=== PATIENT | male | born 1970 | race Caucasian/White ===

== ENCOUNTER 2019-05-05 16:49 | Inpatient (IN) | payer OTHER ==
--- NOTE | 2019-05-05 19:35 | BHS.RME ---
Substance Use & Tx History - Last Treatment Where was last treatment: [facility] ([facility]) (in [facility] w/ Suboxone in [place] , goes monthly claims he did not have money to pay . heroin : 1 bundle /day via inhalation , latest use this morning .) COWS - Scale Resting Pulse: 0= [place] 80 or Below Sweatin= Chills/Flushing Restless Observation: 1= Difficult to Sit Still Pupil Size: 0= Normal to Room Light Bone or Joint Aches: 2= Severe Diffuse Aches Runny Nose/ Eye Tearin= Runny Nose/Eyes GI Upset > 30mins: 2= Nausea/Diarrhea Tremor Observation: 0= None Yawning Observation: 0= None Anxiety or Irritability: 1=Feels Anxious/Irritable Goose Flesh Skin: 0=Smooth Skin (latest Bup yesterday evening . denies MMTP cocaine : 2 x/week etoh - denies other illicits - denies tobacco : 1/ 4 ppd .) COWS Score: 9
--- NOTE | 2019-05-05 20:33 | HP ---
COWS - Scale Resting Pulse: 0= [place] 80 or Below Sweatin= Chills/Flushing Restless Observation: 1= Difficult to Sit Still Pupil Size: 0= Normal to Room Light Bone or Joint Aches: 2= Severe Diffuse Aches Runny Nose/ Eye Tearin= Runny Nose/Eyes GI Upset > 30mins: 2= Nausea/Diarrhea Tremor Observation: 0= None Yawning Observation: 0= None Anxiety or Irritability: 1=Feels Anxious/Irritable Goose Flesh Skin: 0=Smooth Skin (latest Bup yesterday evening . denies MMTP cocaine : 2 x/week etoh - denies other illicits - denies tobacco : 03/21 ppd .) COWS Score: 9 CIWA Score Nausea/Vomitin-No Nausea/No Vomiting Muscle Tremors: None Anxiety: 1-Mildly Anxious Agitation: 0-Normal Activity Paroxysmal Sweats: 1-Minimal Palms Moist Orientation: 2-Disoriented Date<2 days Tacttile Disturbances: 0-None Auditory Disturbances: 0-None Visual Disturbances: 0-None Headache: 0-None Present CIWA-Ar Total Score: 4 - Admission Criteria [facility] Guidelines: Admission for Medically Managed Detox: Requires at least one of the followin. CIWA greater than 12 2. Seizures within the past 24 hours 3. Delirium tremens within the past 24 hours 4. Hallucinations within the past 24 hours 5. Acute intervention needed for co occurring medical disorder 6. Acute intervention needed for co occurring psychiatric disorder 7. Severe withdrawal that cannot be handled at a lower level of care (continued vomiting, continued diarrhea, abnormal vital signs) requiring intravenous medication and/or fluids 8. Admission ROS [facility] - HPI Allergies/Adverse Reactions: Allergies Allergy/AdvReac Type Severity Reaction Status Date / Time No Known Allergies Allergy Verified 05/05/19 20:24 History of Present Illness: 49 y.o. male her for heroin detox , states does not want to continue in Buprenorphine program in [place] . PMHX : anxiety and HTN , reports non- compliance w/ meds. PSHX : left eye injury 37 yrs ago Exam Limitations: Clinical Condition - Review of Systems Constitutional: No Symptoms Reported EENT: reports: See HPI, Nose Congestion Respiratory: reports: No Symptoms reported Cardiac: reports: No Symptoms Reported GI: reports: Nausea, Abdominal cramping : reports: No Symptoms Reported Musculoskeletal: reports: No Symptoms Reported Integumentary: reports: No Symptoms Reported Neuro: reports: No Symptoms reported Endocrine: reports: No Symptoms Reported Psychiatric: reports: Orientated x3, Agitated, Anxious Patient History - Smoking Cessation Smoking history: Current every day smoker Have you smoked in the past 12 months: Yes Hx Chewing Tobacco Use: No Initiated information on smoking cessation: Yes 'Breaking Loose' booklet given: 05/05/19 - Substances abused Heroin Substance route: Inhalation Frequency: Daily Amount used: 1 bundle Age of first use: 21 Date of last use: 05/05/19 Alcohol Substance route: Oral Frequency: Daily Amount used: 4 beers/ small bottle. Age of first use: 16 Date of last use: 05/04/19 Admission Physical Exam BHS - Physical General Appearance: Yes: Disheveled, Mild Distress, Sweating, Anxious HEENTM: Yes: EOMI, Normocephalic, Normal Voice, Nasal Congestion, Rhinorrhea, Other (upper dentures) Respiratory: Yes: Chest Non-Tender, Lungs Clear, Normal Breath Sounds, No Respiratory Distress, No Accessory Muscle Use Neck: Yes: No masses,lesions,Nodules, Trachea in good position Cardiology: Yes: Regular Rhythm, Regular Rate, S1, S2 Abdominal: Yes: Non Tender, Soft Musculoskeletal: Yes: Gait Steady Extremities: Yes: Normal Range of Motion, Non-Tender Neurological: Yes: Alert, Motor Strength 5/5, Normal Mood/Affect Integumentary: Yes: Warm - Diagnostic (1) Opioid dependence Current Visit: Yes Status: Chronic Qualifiers: Substance use status: uncomplicated Qualified Code(s): F11.20 - Opioid dependence, uncomplicated (2) Cocaine use disorder Current Visit: Yes Status: Chronic (3) Alcohol use disorder Current Visit: Yes Status: Chronic (4) Nicotine dependence Current Visit: Yes Status: Chronic Qualifiers: Nicotine product type: cigarettes Inpatient Rehab Admission - Rehab Decision to Admit Inpatient rehab admission?: No
[2019-05-05 20:34] VITALS: BMI 29.2
[2019-05-05] MEDS ORDERED: MAGNESIUM CITRATE 300 ML BOTTLE PO PRN (20:38)
[2019-05-05] MEDS ORDERED: BISMUTH SUBSALICYLATE 524 MG/30 ML UD PO PRN (20:38)
[2019-05-05] MEDS ORDERED: IBUPROFEN 400 MG TABLET (FP) PO PRN (20:38)
[2019-05-05] MEDS ORDERED: NICOTINE POLACRILEX 2 MG GUM BUC PRN (20:38)
[2019-05-05] MEDS ORDERED: MAGNESIUM HYDROX 2400MG/30ML ORAL SUSPENSION 30 ML CUP PO PRN (20:38)
[2019-05-05] MEDS ORDERED: MENTHOL/PHENOL 1 EACH UD MM PRN (20:38)
[2019-05-05] MEDS ORDERED: ACETAMINOPHEN 325 MG TABLET (FP) PO PRN ×2 (20:38)
[2019-05-05] MEDS ORDERED: cloNIDine HCL 0.1 MG TABLET PO PRN (20:39)
[2019-05-05] MEDS: THIAMINE HCL 100 MG TABLET (FP) PO SCH (21:48)
[2019-05-05] MEDS ORDERED: METHADONE HCL 10 MG TABLET (FOR DETOX USE ONLY) PO ONE ×2 (22:00→23:39)
[2019-05-05] MEDS ORDERED: MELATONIN 5 MG TABLETS PO PRN (22:00)
[2019-05-06] MEDS ORDERED: METHADONE HCL 10 MG TABLET (FOR DETOX USE ONLY) ONE (09:26)
[2019-05-06] MEDS ORDERED: METHADONE HCL 5 MG TABLET (FOR DETOX USE ONLY) ONE (09:26)
[2019-05-06] MEDS ORDERED: METHADONE (DETOX) 20 MG, METHADONE (DETOX) 5 MG PO ONE (10:00)
[2019-05-06] MEDS: PRENATAL VITAMINS W/ FOLIC ACID TABLET (FP) PO SCH (10:11)
[2019-05-06] MEDS: METHOCARBAMOL 500 MG TABLET PO PRN ×2 (10:13→22:08)
--- NOTE | 2019-05-06 10:43 | PN ---
[facility] CIWA - CIWA Score Nausea/Vomitin-Mild Nausea/No Vomiting Muscle Tremors: 2 Anxiety: 2 Agitation: 2 Paroxysmal Sweats: No Perspiration Orientation: 0-Oriented Tacttile Disturbances: 1-Very Mild Itch/Numbness Auditory Disturbances: 0-None Visual Disturbances: 0-None Headache: 1-Very Mild CIWA-Ar Total Score: 9 BHS COWS - Scale Resting Pulse: 1= [place] 81-100 Sweatin= No chills or Flushing Restless Observation: 1= Difficult to Sit Still Pupil Size: 1= Pupils >than Normal Bone or Joint Aches: 1= Mild Discomfort Runny Nose/ Eye Tearin= Nasal Congestion GI Upset > 30mins: 1= Stomach Cramp Tremor Observation of Outstretched Hands: 1= Tremor [place], Not Seen Yawning Observation: 1= 1-2x During Session Anxiety or Irritability: 2=Irritable/Anxious Goose Flesh Skin: 0=Smooth Skin COWS Score: 10 S Progress Note (SOAP) Subjective: alert,irritable,anxious,interrupted sleep,pain in the body,back,tremor Objective: 05/06/19 10:45 Vital Signs Temperature 97.5 F L 05/06/19 09:20 Pulse Rate 90 05/06/19 09:20 Respiratory Rate 19 05/06/19 09:20 Blood Pressure 134/69 05/06/19 09:20 O2 Sat by Pulse Oximetry (%) 05/06/19 10:46 labs pending Assessment: 05/06/19 10:46 withdrawal symptom Plan: continue detox methadone regimen,will add valuim 10mgs q 4 hrs prn for 72 hrs
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
--- NOTE | 2019-05-06 11:33 | EKG ---
Test Reason : Blood Pressure : / mmHG Vent. Rate : 077 BPM Atrial Rate : 077 BPM P-R Int : 160 ms QRS Dur : 098 ms QT Int : 366 ms P-R-T Axes : 070 039 040 degrees QTc Int : 414 ms NORMAL SINUS RHYTHM NORMAL ECG NO PREVIOUS ECGS AVAILABLE Confirmed by MD ADONAY, JIMMY ([id number]) on 05/06/2019 11:32:44 AM Referred By: Catracho Edgar Confirmed By:JIMMY URIAS MD
[2019-05-06 11:59] LABS: HEMOGLOBIN 14.1 GM/dL (11.7-16.9); MCH 30.7 pg (25.7-33.7); MCHC 34.3 g/dl (32.0-35.9); MEAN CELL VOLUME 89.6 fl (80-96); MEAN PLT VOLUME 10.3 fl (7.5-11.1); PLATELET COUNT 181 K/MM3 (134-434); RBC 4.57 M/mm3 (4.00-5.60); RDW 12.9 % (11.9-15.9); WHITE BLOOD COUNT 6.4 K/mm3 (4.0-10.0)
[2019-05-06 12:04] LABS: ALBUMIN 3.2 g/dl (3.4-5.0); BILIRUBIN,TOTAL 0.2 mg/dL (0.2-1); BLOOD UREA NITROGEN 15.4 mg/dL (7-18); CALCIUM 8.7 mg/dL (8.5-10.1); CREATININE 0.9 mg/dL (0.55-1.3); TOT PROT 6.6 g/dl (6.4-8.2)
[2019-05-06] MEDS: diazePAM 5 MG TABLET PO PRN (22:08)
[2019-05-06] MEDS: MELATONIN 5 MG TABLETS PO PRN (22:08)
[2019-05-06] MEDS: THIAMINE HCL 100 MG TABLET (FP) PO SCH (22:08)
[2019-05-07] MEDS: MAG HYDROX/AL HYDROX/SIMETH 30 ML UNIT-DOSE CUP PO PRN ×2 (03:31→10:25)
[2019-05-07] MEDS: diazePAM 5 MG TABLET PO PRN (03:39)
--- NOTE | 2019-05-07 09:51 | PN ---
S CIWA - CIWA Score Nausea/Vomitin-No Nausea/No Vomiting Muscle Tremors: 2 Anxiety: 2 Agitation: 2 Paroxysmal Sweats: No Perspiration Orientation: 0-Oriented Tacttile Disturbances: 1-Very Mild Itch/Numbness Auditory Disturbances: 0-None Visual Disturbances: 0-None Headache: 1-Very Mild CIWA-Ar Total Score: 8 BHS Progress Note (SOAP) Subjective: alert,irritable,anxious,interrupted sleep,pain in the body,pain in the right ear Objective: 05/07/19 09:47 Vital Signs Temperature 97.7 F 05/07/19 05:04 Pulse Rate 58 L 05/07/19 05:04 Respiratory Rate 18 05/07/19 05:04 Blood Pressure 104/65 05/07/19 05:04 O2 Sat by Pulse Oximetry (%) 05/07/19 09:48 Laboratory Last Values WBC 6.4 K/mm3 (4.0-10.0) 05/06/19 07:35 RBC 4.57 M/mm3 (4.00-5.60) 05/06/19 07:35 Hgb 14.1 GM/dL (11.7-16.9) 05/06/19 07:35 Hct 41.0 % (35.4-49) 05/06/19 07:35 MCV 89.6 fl (80-96) 05/06/19 07:35 MCH 30.7 pg (25.7-33.7) 05/06/19 07:35 MCHC 34.3 g/dl (32.0-35.9) 05/06/19 07:35 RDW 12.9 % (11.9-15.9) 05/06/19 07:35 Plt Count 181 K/MM3 (134-434) 05/06/19 07:35 MPV 10.3 fl (7.5-11.1) 05/06/19 07:35 Sodium 141 mmol/L (136-145) 05/06/19 07:35 Potassium 4.0 mmol/L (3.5-5.1) 05/06/19 07:35 Chloride 108 mmol/L (98-107) H 05/06/19 07:35 Carbon Dioxide 26 mmol/L (21-32) 05/06/19 07:35 Anion Gap 8 MMOL/L (8-16) 05/06/19 07:35 BUN 15.4 mg/dL (7-18) 05/06/19 07:35 Creatinine 0.9 mg/dL (0.55-1.3) 05/06/19 07:35 Est GFR (CKD-EPI)AfAm 116.65 05/06/19 07:35 Est GFR (CKD-EPI)NonAf 100.64 05/06/19 07:35 Random Glucose 103 mg/dL (74-106) 05/06/19 07:35 Calcium 8.7 mg/dL (8.5-10.1) 05/06/19 07:35 Total Bilirubin 0.2 mg/dL (0.2-1) 05/06/19 07:35 AST 16 U/L (15-37) 05/06/19 07:35 ALT 32 U/L (13-61) 05/06/19 07:35 Alkaline Phosphatase 97 U/L (45-117) 05/06/19 07:35 Total Protein 6.6 g/dl (6.4-8.2) 05/06/19 07:35 Albumin 3.2 g/dl (3.4-5.0) L 05/06/19 07:35 RPR Titer Nonreactive (NONREACTIVE) 05/06/19 07:35 Assessment: 05/07/19 09:48 withdrawal symptom 05/07/19 09:49 redness of external ear canal otitis externa Plan: continue detox methadone regimen,cortisporin otic suspension 4 gtts right ear q 6 hrs
[2019-05-07] MEDS ORDERED: METHADONE HCL 10 MG TABLET (FOR DETOX USE ONLY) PO ONE (10:00)
[2019-05-07] MEDS: PRENATAL VITAMINS W/ FOLIC ACID TABLET (FP) PO SCH (10:23)
[2019-05-07] MEDS: NEOMYCIN/POLYMYXN/HC OTIC SUSPENSION 10 ML BOTTLE AD SCH ×2 (15:45→17:30)
[2019-05-07] MEDS: THIAMINE HCL 100 MG TABLET (FP) PO SCH (22:08)
[2019-05-07] MEDS: MELATONIN 5 MG TABLETS PO PRN (22:09)
[2019-05-08] MEDS: NEOMYCIN/POLYMYXN/HC OTIC SUSPENSION 10 ML BOTTLE AD SCH ×4 (00:10→18:16)
--- NOTE | 2019-05-08 08:49 | PN ---
BHS COWS - Scale Resting Pulse: 0= [place] 80 or Below Sweatin= No chills or Flushing Restless Observation: 1= Difficult to Sit Still Pupil Size: 1= Pupils >than Normal Bone or Joint Aches: 1= Mild Discomfort Runny Nose/ Eye Tearin= Nasal Congestion GI Upset > 30mins: 1= Stomach Cramp Tremor Observation of Outstretched Hands: 2= Slight Tremor Visible Yawning Observation: 1= 1-2x During Session Anxiety or Irritability: 2=Irritable/Anxious Goose Flesh Skin: 0=Smooth Skin COWS Score: 10 S Progress Note (SOAP) Subjective: alert,irritable,anxious,interrupted sleep,pain in the body Objective: 05/08/19 08:48 alert,irritable,anxious,interrupted sleep,tremor,pain in the body 05/08/19 08:48 Vital Signs Temperature 97.5 F L 05/08/19 06:17 Pulse Rate 72 05/08/19 06:17 Respiratory Rate 16 05/08/19 06:17 Blood Pressure 151/83 05/08/19 06:17 O2 Sat by Pulse Oximetry (%) Assessment: 05/08/19 08:48 withdrawal symptom Plan: continue detox methadone regimen,pain in the right ear is less
[2019-05-08] MEDS ORDERED: METHADONE HCL 10 MG TABLET (FOR DETOX USE ONLY) ONE (09:29)
[2019-05-08] MEDS ORDERED: METHADONE HCL 5 MG TABLET (FOR DETOX USE ONLY) ONE (09:29)
[2019-05-08] MEDS ORDERED: METHADONE (DETOX) 10 MG, METHADONE (DETOX) 5 MG PO ONE (10:00)
[2019-05-08] MEDS: PRENATAL VITAMINS W/ FOLIC ACID TABLET (FP) PO SCH (10:15)
[2019-05-08] MEDS: MAG HYDROX/AL HYDROX/SIMETH 30 ML UNIT-DOSE CUP PO PRN (10:16)
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
[2019-05-08] MEDS: THIAMINE HCL 100 MG TABLET (FP) PO SCH (22:11)
[2019-05-08] MEDS: MELATONIN 5 MG TABLETS PO PRN (22:12)
[2019-05-09] MEDS: NEOMYCIN/POLYMYXN/HC OTIC SUSPENSION 10 ML BOTTLE AD SCH ×4 (00:06→21:36)
[2019-05-09] MEDS: diazePAM 5 MG TABLET PO PRN (00:51)
[2019-05-09] MEDS ORDERED: METHADONE HCL 10 MG TABLET (FOR DETOX USE ONLY) PO ONE (10:00)
[2019-05-09] MEDS: PRENATAL VITAMINS W/ FOLIC ACID TABLET (FP) PO SCH (10:11)
--- NOTE | 2019-05-09 13:44 | PN ---
[facility] CIWA - CIWA Score Nausea/Vomitin-No Nausea/No Vomiting Muscle Tremors: None Anxiety: 4-Mod. Anxious/Guarded Agitation: 1-Slight > Activity Paroxysmal Sweats: No Perspiration Orientation: 0-Oriented Tacttile Disturbances: 0-None Auditory Disturbances: 2-Mild Harshness/Frighten Visual Disturbances: 0-None Headache: 0-None Present CIWA-Ar Total Score: 7 S COWS - Scale Resting Pulse: 1= [place] 81-100 Sweatin= No chills or Flushing Restless Observation: 0= Sits Still Pupil Size: 0= Normal to Room Light Bone or Joint Aches: 0= None Runny Nose/ Eye Tearin= None GI Upset > 30mins: 0= None Tremor Observation of Outstretched Hands: 0= None Yawning Observation: 1= 1-2x During Session Anxiety or Irritability: 2=Irritable/Anxious Goose Flesh Skin: 0=Smooth Skin COWS Score: 4 S Progress Note (SOAP) Subjective: Anxious. Objective: PATIENT A & O X 3, OBSERVED AMBULATING ON DETOX UNIT UNASSISTED. IN NO ACUTE DISTRESS. 05/09/19 13:41 Vital Signs Temperature 96.8 F L 05/09/19 08:30 Pulse Rate 81 05/09/19 08:30 Respiratory Rate 18 05/09/19 08:30 Blood Pressure 113/58 L 05/09/19 08:30 O2 Sat by Pulse Oximetry (%) Laboratory Tests 05/06/19 05/06/19 05/06/19 07:35 07:35 07:35 WBC 6.4 RBC 4.57 Hgb 14.1 Hct 41.0 MCV 89.6 MCH 30.7 MCHC 34.3 RDW 12.9 Plt Count 181 MPV 10.3 Sodium 141 Potassium 4.0 Chloride 108 H Carbon Dioxide 26 Anion Gap 8 BUN 15.4 Creatinine 0.9 Est GFR (CKD-EPI)AfAm 116.65 Est GFR (CKD-EPI)NonAf 100.64 Random Glucose 103 Calcium 8.7 Total Bilirubin 0.2 AST 16 ALT 32 Alkaline Phosphatase 97 Total Protein 6.6 Albumin 3.2 L RPR Titer Nonreactive LABS NOTED. Assessment: 05/09/19 13:41 WITHDRAWAL SYMPTOMS. Plan: CONTINUE DETOX. PATIENT SCHEDULED FOR D/C FROM DETOX UNIT TOMORROW.
[2019-05-09] MEDS: hydrOXYzine PAMOATE 25 MG CAPSULE (FP) PO PRN (18:30)
[2019-05-09] MEDS: THIAMINE HCL 100 MG TABLET (FP) PO SCH (21:37)
[2019-05-09] MEDS: MELATONIN 5 MG TABLETS PO PRN (21:37)
[2019-05-10] MEDS: NEOMYCIN/POLYMYXN/HC OTIC SUSPENSION 10 ML BOTTLE AD SCH ×4 (02:15→20:21)
[2019-05-10] MEDS: hydrOXYzine PAMOATE 25 MG CAPSULE (FP) PO PRN ×2 (02:48→23:32)
[2019-05-10] MEDS ORDERED: METHADONE HCL 5 MG TABLET (FOR DETOX USE ONLY) PO ONE (06:00)
[2019-05-10] MEDS: PRENATAL VITAMINS W/ FOLIC ACID TABLET (FP) PO SCH (10:21)
[2019-05-10] MEDS ORDERED: cloNIDine HCL 0.1 MG TABLET PO PRN (11:42)
--- NOTE | 2019-05-10 12:02 | PN ---
[facility] CIWA - CIWA Score Nausea/Vomitin-No Nausea/No Vomiting Muscle Tremors: None Anxiety: 2 Agitation: 1-Slight > Activity Paroxysmal Sweats: 2 Orientation: 0-Oriented Tacttile Disturbances: 0-None Auditory Disturbances: 0-None Visual Disturbances: 0-None Headache: 0-None Present CIWA-Ar Total Score: 5 S COWS - Scale Resting Pulse: 1= [place] 81-100 Sweatin= No chills or Flushing Restless Observation: 0= Sits Still Pupil Size: 0= Normal to Room Light Bone or Joint Aches: 1= Mild Discomfort Runny Nose/ Eye Tearin= None GI Upset > 30mins: 1= Stomach Cramp Tremor Observation of Outstretched Hands: 0= None Yawning Observation: 0= None Anxiety or Irritability: 1=Feels Anxious/Irritable Goose Flesh Skin: 0=Smooth Skin COWS Score: 4 S Progress Note (SOAP) Subjective: Sweating, chills, tremor, no sleep, nausea, a little diarrhea. Patient scheduled for discharge today, he requested discharge tomorrow instead due to increased withdrawal sxs. Objective: 05/10/19 11:56 Last Vital Signs Temp Pulse Resp BP Pulse Ox 97.7 F 84 20 141/78 05/10/19 09:35 05/10/19 09:35 05/10/19 09:35 05/10/19 09:35 Elevated b/p: denies htn, most likely due to withdrawal Laboratory Tests 05/06/19 05/06/19 05/06/19 07:35 07:35 07:35 WBC 6.4 RBC 4.57 Hgb 14.1 Hct 41.0 MCV 89.6 MCH 30.7 MCHC 34.3 RDW 12.9 Plt Count 181 MPV 10.3 Sodium 141 Potassium 4.0 Chloride 108 H Carbon Dioxide 26 Anion Gap 8 BUN 15.4 Creatinine 0.9 Est GFR (CKD-EPI)AfAm 116.65 Est GFR (CKD-EPI)NonAf 100.64 Random Glucose 103 Calcium 8.7 Total Bilirubin 0.2 AST 16 ALT 32 Alkaline Phosphatase 97 Total Protein 6.6 Albumin 3.2 L RPR Titer Nonreactive Labs reviewed Assessment: 05/10/19 11:57 Withdrawal sxs Noted with elevated b/p Plan: Continue detox Encouraged PO water intake Discharge canceled, changed to tomorrow due to increased withdrawal sxs After reviewing detox protocol, communications writer believed patient didn't receive adequate detox medications, therefore, detox protocol extended as follows: Started on clonidine prn, methadone 5mg PO x 1 ordered for tomorrow at 0600 Valium 5mg PO bid x 2 doses today, Valium 5mg PO x 1 dose tomorrow at 0600 Elevated b/p: denies htn, monitor b/p, clonidine 0.1mg PO q8hr prn if b/p >=140/ 90, hold for b/p < 110/60
[2019-05-10] MEDS: diazePAM 5 MG TABLET PO SCH ×2 (12:45→22:08)
[2019-05-10] MEDS: MELATONIN 5 MG TABLETS PO PRN (22:08)
[2019-05-10] MEDS: THIAMINE HCL 100 MG TABLET (FP) PO SCH (22:08)
[2019-05-10] MEDS: MAG HYDROX/AL HYDROX/SIMETH 30 ML UNIT-DOSE CUP PO PRN (22:10)
[2019-05-10] MEDS: METHOCARBAMOL 500 MG TABLET PO PRN (23:32)
[2019-05-11] MEDS: NEOMYCIN/POLYMYXN/HC OTIC SUSPENSION 10 ML BOTTLE AD SCH ×2 (01:08→05:32)
[2019-05-11] MEDS ORDERED: METHADONE HCL 5 MG TABLET (FOR DETOX USE ONLY) PO ONE (06:00)
[2019-05-11] MEDS ORDERED: diazePAM 5 MG TABLET PO ONE (06:00)
[2019-05-11 09:27] VITALS: BP 144/81; PULSE 95; TEMP 98.1
[2019-05-11] MEDS: PRENATAL VITAMINS W/ FOLIC ACID TABLET (FP) PO SCH (09:28)
--- NOTE | 2019-05-11 10:00 | PN ---
BHS COWS - Scale Resting Pulse: 0= [place] 80 or Below Sweatin= No chills or Flushing Restless Observation: 0= Sits Still Pupil Size: 0= Normal to Room Light Bone or Joint Aches: 0= None Runny Nose/ Eye Tearin= None GI Upset > 30mins: 0= None Tremor Observation of Outstretched Hands: 0= None Yawning Observation: 0= None Anxiety or Irritability: 1=Feels Anxious/Irritable Goose Flesh Skin: 0=Smooth Skin COWS Score: 1 S Progress Note (SOAP) Subjective: alert,no complaint Objective: 05/11/19 09:58 Vital Signs Temperature 98.1 F 05/11/19 09:08 Pulse Rate 95 H 05/11/19 09:08 Respiratory Rate 20 05/11/19 09:08 Blood Pressure 144/81 05/11/19 09:08 O2 Sat by Pulse Oximetry (%) Assessment: 05/11/19 09:58 detox completed,no withdrawal symptom Plan: discharge today,patient decline to go to [facility] today,stated he will [facility] [place] [facility]
--- NOTE | 2019-05-11 10:07 | DS ---
[facility] Detox Discharge Summary Admission Date: 05/05/19 Discharge Date: 05/11/19 - History Present History: Alcohol Dependence, Cocaine Dependence, Opioid Dependence Additional Comments: alert,oriented x 3 ambulation on the unit heart normal heart sound,s1s2 lung clear no wheezing abdomen soft,no distension,no pain stable for discharge time spending for discharge 35 mins patient declined to go to [facility],would like to go home and will go to [facility] in [place] by himself Pertinent Past History: nicotine dependence otitis externa - Physical Exam Results Vital Signs: Vital Signs Temperature 98.1 F 05/11/19 09:08 Pulse Rate 95 H 05/11/19 09:08 Respiratory Rate 20 05/11/19 09:08 Blood Pressure 144/81 05/11/19 09:08 O2 Sat by Pulse Oximetry (%) Pertinent Admission Physical Exam Findings: withdrawal signs and symptom Laboratory Last Values WBC 6.4 K/mm3 (4.0-10.0) 05/06/19 07:35 RBC 4.57 M/mm3 (4.00-5.60) 05/06/19 07:35 Hgb 14.1 GM/dL (11.7-16.9) 05/06/19 07:35 Hct 41.0 % (35.4-49) 05/06/19 07:35 MCV 89.6 fl (80-96) 05/06/19 07:35 MCH 30.7 pg (25.7-33.7) 05/06/19 07:35 MCHC 34.3 g/dl (32.0-35.9) 05/06/19 07:35 RDW 12.9 % (11.9-15.9) 05/06/19 07:35 Plt Count 181 K/MM3 (134-434) 05/06/19 07:35 MPV 10.3 fl (7.5-11.1) 05/06/19 07:35 Sodium 141 mmol/L (136-145) 05/06/19 07:35 Potassium 4.0 mmol/L (3.5-5.1) 05/06/19 07:35 Chloride 108 mmol/L (98-107) H 05/06/19 07:35 Carbon Dioxide 26 mmol/L (21-32) 05/06/19 07:35 Anion Gap 8 MMOL/L (8-16) 05/06/19 07:35 BUN 15.4 mg/dL (7-18) 05/06/19 07:35 Creatinine 0.9 mg/dL (0.55-1.3) 05/06/19 07:35 Est GFR (CKD-EPI)AfAm 116.65 05/06/19 07:35 Est GFR (CKD-EPI)NonAf 100.64 05/06/19 07:35 Random Glucose 103 mg/dL (74-106) 05/06/19 07:35 Calcium 8.7 mg/dL (8.5-10.1) 05/06/19 07:35 Total Bilirubin 0.2 mg/dL (0.2-1) 05/06/19 07:35 AST 16 U/L (15-37) 05/06/19 07:35 ALT 32 U/L (13-61) 05/06/19 07:35 Alkaline Phosphatase 97 U/L (45-117) 05/06/19 07:35 Total Protein 6.6 g/dl (6.4-8.2) 05/06/19 07:35 Albumin 3.2 g/dl (3.4-5.0) L 05/06/19 07:35 RPR Titer Nonreactive (NONREACTIVE) 05/06/19 07:35 Vital Signs Temperature 98.1 F 05/11/19 09:08 Pulse Rate 95 H 05/11/19 09:08 Respiratory Rate 20 05/11/19 09:08 Blood Pressure 144/81 05/11/19 09:08 O2 Sat by Pulse Oximetry (%) - Treatment Hospital Course: Detox Protocol Followed, Detoxed Safely, Responded well, Discharged Condition Good, Rehab Referral Accepted Patient has Accepted a Rehab Referral to: [facility] - Medication Discharge Medications: Ambulatory Orders NK [No Known Home Medication] 05/05/19 - Diagnosis (1) Uncomplicated opioid dependence Current Visit: Yes Status: Acute (2) Alcohol use disorder Current Visit: Yes Status: Chronic (3) Cocaine use disorder Current Visit: Yes Status: Chronic (4) Nicotine dependence Current Visit: Yes Status: Chronic Qualifiers: Nicotine product type: cigarettes (5) Otitis externa of right ear Current Visit: Yes Status: Acute - AMA Did Patient Leave Against Medical Advice: No
== END 2019-05-11 09:35 | disposition home or self-care (01) | DRG 773 ==
LOC: YASAS 16:49 → Y6N 20:40
PROVIDERS: ADMIT Allergy & Immunology; ATTEND Allergy & Immunology
PROC: HZ2ZZZZ Detoxification Services for Substance Abuse Treatment (ICD-10-PCS; principal; 2019-05-05)
DX: F11.23 Opioid dependence with withdrawal (principal); F10.230 Alcohol dependence with withdrawal, uncomplicated; F14.20 Cocaine dependence, uncomplicated; F17.210 Nicotine dependence, cigarettes, uncomplicated; F19.282 Other psychoactive substance dependence with psychoactive substance-induced sleep disorder; F19.24 Other psychoactive substance dependence with psychoactive substance-induced mood disorder; H60.91 Unspecified otitis externa, right ear; R03.0 Elevated blood-pressure reading, without diagnosis of hypertension
CPT/HCPCS: 36415; 80053; 85027; 86593; 93005; 93010; J0735